=== PATIENT | male | born 1995 | race Caucasian/White ===

== ENCOUNTER 2017-10-14 02:25 | Emergency (ER) | payer BC ==
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
== END 2017-10-14 03:20 | disposition home or self-care (01) ==
LOC: KA.ED 02:25
DX: S02.5XXA Fracture of tooth (traumatic), initial encounter for closed fracture (principal); R55 Syncope and collapse; Y04.2XXA Assault by strike against or bumped into by another person, initial encounter
CPT/HCPCS: 99283